=== PATIENT | female | born 1930 | race Caucasian/White ===

== ENCOUNTER 2017-05-09 20:29 | Inpatient (IN) | payer MEDICARE, OTHER ==
[~2017-05-09] VITALS: Ht 149.9 cm; Wt 45.4 kg
[2017-05-09] MEDS ORDERED: DULO30CA2 PO (21:01)
[2017-05-09] MEDS ORDERED: TRAM50TA2 PO (21:01)
[2017-05-09] MEDS ORDERED: GABA600T2 PO (21:01)
[2017-05-09] MEDS ORDERED: MULT1TAB73 PO (21:01)
[2017-05-09] MEDS ORDERED: LEVO50TA8 PO (21:01)
[2017-05-09] MEDS ORDERED: ATOR10TA PO (21:01)
[2017-05-09] MEDS ORDERED: TRAM50TA PO (21:01)
[2017-05-09] MEDS ORDERED: LOSA100T15 PO (21:01)
[2017-05-09] MEDS ORDERED: CHOL100062 PO (21:01)
[2017-05-09] MEDS ORDERED: CYAN100T3 PO (21:01)
[2017-05-09] MEDS ORDERED: AMLO5TAB2 PO (21:01)
--- NOTE | 2017-05-09 21:02 | NUR ---
Pt. admitted to GPS, under care of Dr. Lewis Belongs List completed
[2017-05-09] MEDS ORDERED: MAGNESIUM HYDROXIDE 30 ML LIQUID UDC PO PRN (21:15)
[2017-05-09] MEDS ORDERED: MAG HYDROX/AL HYDROX/SIMETH 30 ML LIQUID UDC PO PRN (21:15)
[2017-05-09 21:30] VITALS: BP 120/78
--- NOTE | 2017-05-10 04:54 | NUR ---
GPS/NSG Admitting note: Patient is an 86 year old female placed on a 5150 for Danger to self admitted to MHU under the care of Dr. Lewis and Dr. Beckett. Patient was found on the floor of her house unresponsive by caregiver on 05/07/17. According to medical records provided by [facility] next to her a suicide note was found along with an empty bottle of Ambien last filled on February of 2017, for ninety pills. Patient's hold began on 05/09/17 at 1635. Reported medical history include, Chronic pain syndrome, Neuropathy, Hypertension, Post-surgical hypothyroidism, and Major depression. Upon assessment patient presented alert, oriented to name, place and situation, calm and cooperative but appeared guarded giving restricted answers, did not seem to want to discuss the reasons for her admission. Patient did state that she was not suicidal did not have thoughts related to suicide and denied intent. Patient stated that she realized how much trouble she had caused. Patient cooperated with admission process, signed paperwork. Patient discussed with staff an existing Polst where she is a DNR/DNI, patient stated she wanted to " naturally" patient was advised that a copy is required and until then she will have a full code status, patient right's handbook provided, oriented to unit, p.m. care provided. Patient's skin intact. Belonging's including contraband logged and placed in locker, hearing aids right and left, with swage toolsetter unit kept with nursing. Unsuccessful attempts made to notify family, will endorse for follow up. Initiate observation Q15 mins x 24 hours as well as provide a safe environment.
[2017-05-10] MEDS: ACETAMINOPHEN 325 MG TABLET PO PRN ×2 (06:03→20:56)
[2017-05-10] MEDS ORDERED: ACETAMINOPHEN 325 MG TABLET ONE (06:08)
[2017-05-10 07:30] VITALS: BP 164/76
[2017-05-10] MEDS ORDERED: TRAMADOL HCL 50 MG TABLET PO PRN (11:00)
[2017-05-10] MEDS ORDERED: DEXTROSE 50% 50 ML DISP.SYRIN IV PRN (11:00)
[2017-05-10] MEDS ORDERED: AMLODIPINE 5 MG TABLET PO SCH (11:00)
[2017-05-10] MEDS ORDERED: Medication Not On Formulary EA (Losartan Potassium 100 MG) PO SCH (11:00)
[2017-05-10] MEDS: DULOXETINE 30 MG CAPSULE.DR PO SCH (11:19)
[2017-05-10] MEDS: LOSARTAN POTASSIUM 50 MG TABLET PO SCH (11:19)
[2017-05-10] MEDS: GABAPENTIN 300 MG CAPSULE PO SCH ×3 (11:19→17:00)
[2017-05-10] MEDS: LEVOTHYROXINE SODIUM 50 MCG TABLET PO SCH (11:20)
[2017-05-10] MEDS: BLOOD SUGAR DIAGNOSTIC 1 EACH STRIP VI SCH ×3 (12:08→20:56)
[2017-05-10] MEDS: INSULIN REGULAR, HUMAN 300 UNIT/3 ML VIAL SQ PRN ×2 (12:11→21:00)
[2017-05-10] MEDS: CLONAZEPAM 0.5 MG TABLET PO PRN ×2 (14:04→20:41)
[2017-05-10] MEDS ORDERED: hydrALAZINE HCL 25 MG TABLET PO PRN (16:15)
[2017-05-10 16:18] VITALS: BP 126/67
[2017-05-10 20:21] VITALS: BP 124/68
[2017-05-10] MEDS: ATORVASTATIN 10 MG TABLET PO SCH (20:41)
[2017-05-10] MEDS: AMLODIPINE 5 MG TABLET PO SCH (20:42)
[2017-05-11] MEDS: LEVOTHYROXINE SODIUM 50 MCG TABLET PO SCH (06:39)
[2017-05-11] MEDS: BLOOD SUGAR DIAGNOSTIC 1 EACH STRIP VI SCH ×4 (06:48→20:41)
[2017-05-11 07:30] VITALS: BP 123/60
[2017-05-11 07:41] LABS: BASOPHILS % (AUTO) 0.7 % (0.0-2.0); EOSINOPHILS # (AUTO) 0.1 K/uL (0.0-0.7); EOSINOPHILS % (AUTO) 1.1 % (0.0-7.0); HEMATOCRIT 38.3 % (31.2-41.9); HEMOGLOBIN 13.2 g/dL (10.9-14.3); LYMPHOCYTES # (AUTO) 1.7 K/uL (20.0-40.0); LYMPHOCYTES % (AUTO) 25.6 % (20.5-51.5); MEAN CORPUSCULAR HEMOGLOBIN 31.7 uug (24.7-32.8); MEAN CORPUSCULAR HGB CONC 35 g/dL (32.3-35.6); MEAN CORPUSCULAR VOLUME 91.8 fL (75.5-95.3); MONOCYTES # (AUTO) 0.5 K/uL (2.0-10.0); MONOCYTES % (AUTO) 8.2 % (0.0-11.0); NEUTROPHILS # (AUTO) 4.2 K/uL (1.8-8.9); NEUTROPHILS % (AUTO) 64.4 % (38.5-71.5); PLATELET COUNT (AUTO) 245 K/uL (179-408); RED BLOOD CELL COUNT(AUTO) 4.17 MIL/uL (3.63-4.92); WHITE BLOOD COUNT (AUTO) 6.6 K/uL (3.8-11.8)
[2017-05-11 07:43] LABS: ALANINE AMINOTRANSFERASE 18 U/L (14-59); ALKALINE PHOSPHATASE 70 U/L (50-136); ASPARTATE AMINOTRANSFERASE 19 U/L (15-37); CARBON DIOXIDE 33 mmol/L (21-32); CHLORIDE 106 mmol/L (98-107); CREATININE 0.5 mg/dL (0.6-1.3); GLUCOSE 118 mg/dL (74-106); MAGNESIUM 1.8 mg/dL (1.8-2.4); TOTAL PROTEIN, SERUM 5.9 g/dL (6.4-8.2); UREA NITROGEN, BLOOD 11 mg/dL (7-18)
[2017-05-11 07:52] LABS: THYROID STIMULATING HORMONE 3.798 mIU/mL (0.358-3.740)
[2017-05-11] MEDS ORDERED: Medication Not On Formulary EA (Multivitamins (Multivitamin) 1 EACH) PO SCH (09:00)
[2017-05-11] MEDS: CHOLECALCIFEROL 1,000 UNIT TABLET PO SCH (09:13)
[2017-05-11] MEDS: MULTIVITAMINS,THERAPEUTIC TABLET PO SCH (09:13)
[2017-05-11] MEDS: GABAPENTIN 300 MG CAPSULE PO SCH ×2 (09:13→13:11)
[2017-05-11] MEDS: DULOXETINE 30 MG CAPSULE.DR PO SCH (09:13)
[2017-05-11] MEDS: LOSARTAN POTASSIUM 50 MG TABLET PO SCH (09:13)
[2017-05-11] MEDS: AMLODIPINE 5 MG TABLET PO SCH ×2 (09:14→20:42)
[2017-05-11] MEDS: CYANOCOBALAMIN 100 MCG TABLET PO SCH (09:14)
[2017-05-11] MEDS ORDERED: POTASSIUM CHLORIDE 20 MEQ TAB.PRT.SR PO ONE (11:00)
[2017-05-11] MEDS: INSULIN REGULAR, HUMAN 300 UNIT/3 ML VIAL SQ PRN ×3 (11:58→21:48)
[2017-05-11 15:30] VITALS: BP 117/55
[2017-05-11] MEDS ORDERED: GABAPENTIN 300 MG CAPSULE PO SCH (17:00)
[2017-05-11] MEDS: GABAPENTIN 400 MG CAPSULE PO SCH (17:29)
[2017-05-11 20:00] VITALS: BP 127/64
[2017-05-11] MEDS: ATORVASTATIN 10 MG TABLET PO SCH (20:41)
[2017-05-11] MEDS: TEMAZEPAM 7.5 MG CAPSULE PO PRN (20:42)
[2017-05-12] MEDS: BLOOD SUGAR DIAGNOSTIC 1 EACH STRIP VI SCH ×4 (06:41→21:32)
[2017-05-12] MEDS: LEVOTHYROXINE SODIUM 50 MCG TABLET PO SCH (06:41)
[2017-05-12 07:30] VITALS: BP 127/65
[2017-05-12] MEDS: GABAPENTIN 400 MG CAPSULE PO SCH ×3 (09:07→17:41)
[2017-05-12] MEDS: CYANOCOBALAMIN 100 MCG TABLET PO SCH (09:07)
[2017-05-12] MEDS: MULTIVITAMINS,THERAPEUTIC TABLET PO SCH (09:07)
[2017-05-12] MEDS: CHOLECALCIFEROL 1,000 UNIT TABLET PO SCH (09:07)
[2017-05-12] MEDS: AMLODIPINE 5 MG TABLET PO SCH ×2 (09:08→21:34)
[2017-05-12] MEDS: LOSARTAN POTASSIUM 50 MG TABLET PO SCH (09:08)
--- NOTE | 2017-05-12 09:08 | NUR ---
Firearms Report: Power Truck Driver completed and submitted [employer] Firearms Report on 05/12/17.
[2017-05-12] MEDS: DULOXETINE 30 MG CAPSULE.DR PO SCH (09:11)
--- NOTE | 2017-05-12 11:14 | NUR ---
Initial Discharge Instructions: Pt lives at home with 24/7 caregivers [[address] [place] [address]; [phone]]. Per pt she would like to return there upon discharge. Sheet Metal Worker Helper attempted to contact pt's dtr, Anjali Cuadra ([phone]) and left message for return call. SW will speak with pt, family, and MD regarding appropriate discharge plans. SW will form a safe and proper discharge.
[2017-05-12] MEDS: ACETAMINOPHEN 325 MG TABLET PO PRN (11:46)
[2017-05-12] MEDS: INSULIN REGULAR, HUMAN 300 UNIT/3 ML VIAL SQ PRN ×3 (11:56→21:35)
[2017-05-12 17:20] VITALS: BP 112/57
[2017-05-12 20:05] VITALS: BP 126/58
--- NOTE | 2017-05-12 21:30 | NUR ---
RECEIVED PATIENT IN THE DAY ROOM, SHE WAS NOTED A/O X 3. SHE IS ABLE TO AMBULATE WITH STEADY GAIT AND ABLE TO Make HER NEEDS KNOW. SHE WAS NOTED CALM AND COOPERATIVE. SHE DENIES PAIN AT THIS TIME. SHE IS COMPLIANT WITH MEDICATION REGIMENT AND DIET AND PLAN OF CARE. SHE WAS NOTED WITH DEPRESSED MOOD; HOWEVER, SHE DENIES SI, DENIES AH/VH AT THIS TIME. FAIR INSIGHT. PATIENT REQUESTED ROOM CHANGE D/T ROOMMATE BEEN LOUD. SHE WAS THEN MOVED TO A DIFFERENT ROOM. WILL CONTINUE TO MONITOR.
[2017-05-12] MEDS: ATORVASTATIN 10 MG TABLET PO SCH (21:33)
[2017-05-13] MEDS: LEVOTHYROXINE SODIUM 50 MCG TABLET PO SCH (06:45)
[2017-05-13] MEDS: BLOOD SUGAR DIAGNOSTIC 1 EACH STRIP VI SCH ×4 (07:01→20:18)
[2017-05-13 08:00] VITALS: BP 128/55
[2017-05-13] MEDS: GABAPENTIN 400 MG CAPSULE PO SCH ×3 (08:45→17:19)
[2017-05-13] MEDS: MULTIVITAMINS,THERAPEUTIC TABLET PO SCH (08:47)
[2017-05-13] MEDS: DULOXETINE 30 MG CAPSULE.DR PO SCH (08:47)
[2017-05-13] MEDS: AMLODIPINE 5 MG TABLET PO SCH ×2 (08:48→20:18)
[2017-05-13] MEDS: CHOLECALCIFEROL 1,000 UNIT TABLET PO SCH (08:48)
[2017-05-13] MEDS: CYANOCOBALAMIN 100 MCG TABLET PO SCH (08:48)
[2017-05-13] MEDS: LOSARTAN POTASSIUM 50 MG TABLET PO SCH (08:48)
[2017-05-13 10:47] LABS: *BILIRUBIN,URIN NEGATIVE (NEGATIVE); *BLOOD, URINE NEGATIVE (NEGATIVE); *CLARITY,URINE CLEAR (CLEAR); *COLOR,URINE YELLOW (YELLOW); *KETONES,URINE NEGATIVE (NEGATIVE); *PROTEIN,URINE NEGATIVE (NEGATIVE); *UROBILINOGEN,URINE 0.2 E.U./dl (NORMAL); LEUKOCYTE ESTERASE ,URINE TRACE (NEGATIVE); NITRITE, URINE NEGATIVE (NEGATIVE); PH,URINE 7.5 (5.0-8.0); UGLUCOSE NEGATIVE (NEGATIVE)
[2017-05-13 11:00] LABS: BACTERIA,URINE FEW /HPF (NONE SEEN); RBC,URINE 0-3 /HPF (0-3); SQUAMOUS EPITHELIAL CELL,UR FEW /HPF (NONE SEEN)
[2017-05-13] MEDS: INSULIN REGULAR, HUMAN 300 UNIT/3 ML VIAL SQ PRN ×3 (12:01→20:37)
[2017-05-13 15:33] VITALS: BP 123/64
[2017-05-13 19:00] VITALS: BP 111/59
--- NOTE | 2017-05-13 20:00 | NUR ---
PT RECEIVED IN HER ROOM AWAKE READING, SOMEWHAT PASSIVE, GUARDED AND SUSPICIOUS, MAY BE HARD OF HEARING. PERIODICALLY GOES TO THE ACTIVITY ROOM, WILL CONTINUE TO MONITOR CLOSELY.
[2017-05-13] MEDS: ATORVASTATIN 10 MG TABLET PO SCH (20:18)
[2017-05-14] MEDS: LEVOTHYROXINE SODIUM 50 MCG TABLET PO SCH (06:47)
[2017-05-14] MEDS: BLOOD SUGAR DIAGNOSTIC 1 EACH STRIP VI SCH ×4 (06:53→20:19)
[2017-05-14 07:30] VITALS: BP 143/54
[2017-05-14] MEDS: MULTIVITAMINS,THERAPEUTIC TABLET PO SCH (08:49)
[2017-05-14] MEDS: GABAPENTIN 400 MG CAPSULE PO SCH ×3 (08:50→18:11)
[2017-05-14] MEDS: LOSARTAN POTASSIUM 50 MG TABLET PO SCH (08:50)
[2017-05-14] MEDS: AMLODIPINE 5 MG TABLET PO SCH ×2 (08:51→20:19)
[2017-05-14] MEDS: DULOXETINE 30 MG CAPSULE.DR PO SCH (08:51)
[2017-05-14] MEDS: CYANOCOBALAMIN 100 MCG TABLET PO SCH (08:51)
[2017-05-14] MEDS: CHOLECALCIFEROL 1,000 UNIT TABLET PO SCH (08:51)
[2017-05-14] MEDS: ACETAMINOPHEN 325 MG TABLET PO PRN (09:03)
[2017-05-14] MEDS: INSULIN REGULAR, HUMAN 300 UNIT/3 ML VIAL SQ PRN ×2 (12:31→20:40)
[2017-05-14 15:00] VITALS: BP 112/63
[2017-05-14 19:50] VITALS: BP 120/56
--- NOTE | 2017-05-14 20:00 | NUR ---
PT RECEIVED IN HER ROOM AWAKE, WITHDRAWN TO SELF, DENIES SI, REQUESTED FOR SLEEP MEDICINE, WILL CONTINUE TO MONITOR CLOSELY.
[2017-05-14] MEDS: ATORVASTATIN 10 MG TABLET PO SCH (20:18)
[2017-05-14] MEDS: TEMAZEPAM 7.5 MG CAPSULE PO PRN (20:29)
[2017-05-15] MEDS: LEVOTHYROXINE SODIUM 50 MCG TABLET PO SCH (06:31)
[2017-05-15] MEDS: BLOOD SUGAR DIAGNOSTIC 1 EACH STRIP VI SCH ×4 (06:44→20:21)
[2017-05-15 07:30] VITALS: BP 137/60
[2017-05-15] MEDS: LOSARTAN POTASSIUM 50 MG TABLET PO SCH (09:12)
[2017-05-15] MEDS: CYANOCOBALAMIN 100 MCG TABLET PO SCH (09:13)
[2017-05-15] MEDS: GABAPENTIN 400 MG CAPSULE PO SCH ×3 (09:13→17:03)
[2017-05-15] MEDS: MULTIVITAMINS,THERAPEUTIC TABLET PO SCH (09:13)
[2017-05-15] MEDS: CHOLECALCIFEROL 1,000 UNIT TABLET PO SCH (09:13)
[2017-05-15] MEDS: DULOXETINE 30 MG CAPSULE.DR PO SCH ×2 (09:13→17:02)
[2017-05-15] MEDS: AMLODIPINE 5 MG TABLET PO SCH ×2 (09:13→20:04)
[2017-05-15] MEDS: INSULIN REGULAR, HUMAN 300 UNIT/3 ML VIAL SQ PRN ×2 (12:30→20:06)
[2017-05-15 15:17] VITALS: BP 110/55
--- NOTE | 2017-05-15 16:10 | NUR ---
Thursday DC Note: Patient will be discharged back home with 24hr caregiving [[address] [place] [address]; [phone]] via private transportation at 10:30am. Spoke with patient's daughter, Anjali ([phone]) who is willing to provide transportation and is aware and agreeable with discharge plans. Patient is aware and agreeable with discharge plans. Patient will follow-up with her Primary Care Physician Dr. Katherine Mcgill [[address] [place] [address]; [phone]] and was given a list of Medicare-accepting Psychiatrists. The list includes: [facility] Dr. Lonnie Dumont [[address] [place] [address]; ]; [facility] Dr. Laura Arrieta [[address] [place] [address]; ]; Dr. Marito Suarez [[address] [place] [address]; ]; and Dr. Mert Larios [[address] [place] [address]; ]. Patient was provided with outpatient mental health resources to [facility] , Chloe Crawley , and the National Suicide Prevention Lifeline .
[2017-05-15 19:49] VITALS: BP 103/57
[2017-05-15] MEDS: ATORVASTATIN 10 MG TABLET PO SCH (20:04)
--- NOTE | 2017-05-15 21:00 | NUR ---
RECEIVED PATIENT IN THE DAY ROOM, SHE WAS NOTED A/O X 3 ABLE TO AMBULATED WITH STEADY GAIT WITH A FRONT WHEEL WALKER AND ABLE TO MAKE HER NEEDS KNOW. SHE WAS NOTED PLEASANT AND COOPERATIVE, MEDICATION COMPLIANT AT THIS TIME. NORVASC 5MG PO Q12 HRS WAS HELD AT 2100 DUE TO DECREASED B/P 103/57MMHG. PATIENT DENIES SI OR ANY THOUGHT TO HARM SELF. SAFETY WAS EMPHASIS. ENCOURAGE TO VERBALIZED FEELINGS. ABLE TO CFS. WILL CONTINUE TO MONITOR.
[2017-05-16] MEDS: LEVOTHYROXINE SODIUM 50 MCG TABLET PO SCH (06:27)
[2017-05-16] MEDS: BLOOD SUGAR DIAGNOSTIC 1 EACH STRIP VI SCH (06:46)
[2017-05-16 07:54] VITALS: BP 135/66
[2017-05-16] MEDS: DULOXETINE 30 MG CAPSULE.DR PO SCH (08:22)
[2017-05-16] MEDS: GABAPENTIN 400 MG CAPSULE PO SCH (08:22)
[2017-05-16] MEDS: MULTIVITAMINS,THERAPEUTIC TABLET PO SCH (08:22)
[2017-05-16] MEDS: LOSARTAN POTASSIUM 50 MG TABLET PO SCH (08:23)
[2017-05-16] MEDS: CYANOCOBALAMIN 100 MCG TABLET PO SCH (08:23)
[2017-05-16] MEDS: CHOLECALCIFEROL 1,000 UNIT TABLET PO SCH (08:23)
[2017-05-16 08:26] VITALS: BP 135/66
[2017-05-16] MEDS: AMLODIPINE 5 MG TABLET PO SCH (08:26)
--- NOTE | 2017-05-16 09:22 | NUR ---
Called in Medical prescriptions to 's Pharmacy, [facility] [address], .
--- NOTE | 2017-05-16 11:25 | NUR ---
0915 DISCHARGED INSTRUCTION GIVEN TO THE PATIENT REGARDING MEDICATIONS TO CONTINUE UPON DISCHARGED.PRESCRIPTION FOR MEDICAL ALREADY CALLED TO PATIENT PHARMACY BY THE CHARGED NURSE. PRESCRIPTION FOR PSYCHIATRY GIVEN TO PATIENT INSTRUCTED TO FILLED IT TO HER PHARMACY, PATIENT VERBALIZED UNDERSTADING. PATIENT TOOK ALL HER MORNING MEDICATIONS. PATIENT ALERT AND OX3 DENIES SUICIDAL IDEATION/ DENIES HOMICIDAL THOUGHTS. NO DELUSION / NO HALLUCINATION NOTED 1045 PATIENT PICKED UP BY HER DAUGHTER AND WENT HOME VIA PRIVATE CAR [place] [address] [address].
== END 2017-05-16 11:00 | disposition home or self-care (01) | DRG 885 ==
LOC: ER 20:29 → GPS 21:05
PROVIDERS: ADMIT Psychiatry & Neurology Psychiatry; ATTEND Internal Medicine
DX: F33.2 Major depressive disorder, recurrent severe without psychotic features (principal); E11.65 Type 2 diabetes mellitus with hyperglycemia; E44.0 Moderate protein-calorie malnutrition; E87.1 Hypo-osmolality and hyponatremia; E11.42 Type 2 diabetes mellitus with diabetic polyneuropathy; M06.9 Rheumatoid arthritis, unspecified; T42.6X Poisoning by, adverse effect of and underdosing of other antiepileptic and sedative-hypnotic drugs; G89.4 Chronic pain syndrome; Z90.49 Acquired absence of other specified parts of digestive tract; E03.9 Hypothyroidism, unspecified; M43.20 Fusion of spine, site unspecified; Z79.899 Other long term (current) drug therapy; Z68.20 Body mass index [BMI] 20.0-20.9, adult; E87.6 Hypokalemia; I10 Essential (primary) hypertension
CPT/HCPCS: 36415; 83735; 84100; 84443; 85025; 87077; 87086; 97116; 97530; A4663; J1815